=== PATIENT | male | born 1965 | race Caucasian/White ===

== ENCOUNTER 2017-11-01 09:22 | Emergency (ER) | payer BC ==
[~2017-11-01] VITALS: Ht 182.9 cm; Wt 82.6 kg
--- NOTE | 2017-11-01 09:34 | NUR ---
ARRIVAL PT AMBULATED TO FLOOR. PT C/O FLU LIKE SYMPTOMS. PT STATES MILD SOB UPON ARRIVAL ALONG WITH BODY ACHES. HARDIK IN ROOM AT THIS TIME.
[2017-11-01 09:40] VITALS: BP 120/73
--- NOTE | 2017-11-01 09:45 | ER.PDOC ---
General Chief Complaint: Cough/Congestion Stated Complaint: FEVER,COUGH/CONGESTION,BODY ACHE Time seen by MD: 10:00 Source: patient Exam Limitations: no limitations History of Present Illness Timing/Duration: gradual Severity: mild Associated Symptoms: fever/chills, sore throat, cough, chest pain, mild SOB Worsen By: deep breathing Prior symptoms/Treatment: Similar symptoms previous Allergies: Coded Allergies: No Known Drug Allergies (Verified Allergy, Unknown, 11/01/17) All Other Systems: Reviewed and Negative Past Medical History Medical History: no pertinent history Surgical History: no surgical history Family History Significant Family History: no pertinent family hx Social History Smoking: cigarettes, less than 1 pack/day Alcohol Use: occassionally Drug Use: none Reviewed Nursing Reviewed: Vital Signs, Abn. Noted Physical Exam General Appearance: alert, no distress Eye: eyes nml inspection, lids & conjunct. nml, PERRL, no nystagmus Ear: ear nml Nose: nose nml Throat: pharynx nml, airway nml Neck: nml inspection, supple Respiratory: rales (BASES) Abdomen: non-tender, no organomegaly CVS: reg rate & rhythm, heart sounds nml Skin: color nml, no rash, warm/dry Extremities: non-tender, nml ROM, no pedal edema NEURO/PSYCH: oriented x 3, CN's nml as tested, motor nml, sensation nml, mood/ affect nml Results/Orders Results/Orders Laboratory Tests Test 11/01/17 09:38 11/01/17 09:43 Influenza Type A Antigen POSITIVE (NEG) Influenza B Immunofluorescence NEGATIVE (NEG) Group A Streptococcus Screen NEGATIVE (NEGATIVE) Departure Time of Disposition: 11:11 Disposition: 01 HOME, SELF-CARE Impression: Primary Impression: Flu Condition: Stable Referrals: PCP,UNKNOWN (PCP) PRIMARY CARE PROVIDER Duration or Time Spent with Pa: 1 HR DONA DYE MD Nov 01, 2017 09:44
--- NOTE | 2017-11-01 10:05 | DIREP ---
PROCEDURE:CHEST 2 VIEWS COMPARISON:None. INDICATIONS:cap FINDINGS: LUNGS/PLEURA:Scarring in the lung bases bilaterally. No pneumonia is seen. No CHF or effusions is identified VASCULATURE:Normal. Unremarkable pulmonary vasculature. CARDIAC:Normal. No cardiac silhouette abnormality or cardiomegaly. MEDIASTINUM:Normal. No visible mass or adenopathy. BONES:Normal. No fracture or visible bony lesion. OTHER:Negative. CONCLUSION:Bibasal scarring or atelectasis. No pneumonia is seen. Dictated by: Rito Fajardo MD on 11/01/2017 at 10:04 AM
[2017-11-01 10:17] VITALS: BP 120/73
[2017-11-01 10:22] VITALS: BP 125/54
--- NOTE | 2017-11-01 10:46 | NUR ---
DISCHARGE PT DISCHARGED AT THIS TIME. PT UNDERSTANDS ALL NEW MEDICATIONS AND NOT TO WORK X 2DAYS. PT UNDERSTANDS TO FOLLOW UP WITH A PCP IF SYMPTOMS GET WORSE. PT DENIES ANY OTHER QUESTIONS OR CONCERNS AT THIS TIME.
== END 2017-11-01 10:40 | disposition home or self-care (01) ==
LOC: ER 09:22
DX: J11.1 Influenza due to unidentified influenza virus with other respiratory manifestations (principal); F17.210 Nicotine dependence, cigarettes, uncomplicated; R07.9 Chest pain, unspecified
CPT/HCPCS: 71046; 86710; 87070; 87880; 99285